=== PATIENT | female | born 1965 ===

== ENCOUNTER 2019-05-27 14:32 | Emergency (ER) | payer SELFPAY ==
[2019-05-27] MEDS ORDERED: Ibuprofen TAB* 600 MG PO ONE (15:00)
--- NOTE | 2019-05-27 16:05 | UC ---
Lower Extremity/Ankle HPI - HPI Summary HPI Summary: 53-year-old woman comes in with a chief complaint of left ankle pain and injury. Just prior to arrival slipped and fell injuring her ankle. Is unable to bear weight. Ankle is swollen. No complaint of decreased sensation. No complaint of any other injuries. Has not taken any pain medications since the injury. - History of Current Complaint Chief Complaint: UCLowerExtremity Stated Complaint: ANKLE INJURY Time Seen by Provider: 05/27/19 15:50 Pain Intensity: 10 - Allergies/Home Medications Allergies/Adverse Reactions: Allergies Allergy/AdvReac Type Severity Reaction Status Date / Time No Known Allergies Allergy Verified 05/27/19 14:49 Home Medications: Home Medications Levothyroxine TAB* [Synthroid 75 MCG TAB*] 1 tab DAILY 05/27/19 [History Confirmed 05/27/19] PMH/Surg Hx/FS Hx/Imm Hx Previously Healthy: Yes Endocrine History: Hypothyroidism - Surgical History Surgical History: None - Family History Known Family History: Positive: Non-Contributory - Social History Alcohol Use: None Substance Use Type: None Smoking Status (MU): Never Smoked Tobacco Review of Systems All Other Systems Reviewed And Are Negative: Yes Constitutional: Positive: Negative Skin: Positive: Negative Eyes: Positive: Negative ENT: Positive: Negative Respiratory: Positive: Negative Cardiovascular: Positive: Negative Gastrointestinal: Positive: Negative Motor: Positive: Other - see hpi Neurovascular: Positive: Negative Musculoskeletal: Positive: Other: - see hpi Neurological/Mental Status: Positive: Negative Psychological: Positive: Negative Is Patient Immunocompromised?: No Physical Exam Triage Information Reviewed: Yes Appearance: Well-Appearing, Well-Nourished, Pain Distress - mild at rest, increased with movement/exam of left ankle Vital Signs: Initial Vital Signs Temp 98.1 F 05/27/19 14:50 Pulse 56 05/27/19 14:50 Resp 16 05/27/19 14:50 BP 100/56 05/27/19 14:50 Pulse Ox 100 05/27/19 14:50 Vital Signs Reviewed: Yes Eye Exam: Normal Eyes: Positive: Conjunctiva Clear Neck: Positive: Supple Respiratory: Positive: No respiratory distress Musculoskeletal: Positive: Other: - Left ankle is swollen and tender to palpation. The Achilles tendon is intact. Dorsalis pedis pulse is present. In the ankle and foot Capillary refill is normal sensation is normal. There is no tenting of the skin. Neurological: Positive: Alert Psychological: Positive: Normal Response To Family, Age Appropriate Behavior Skin Exam: Normal Lower Extremity Course/Dx - Course Course Of Treatment: Intelligence Group Supervisor: Jorje Thurman Daniel, ([id number]) Clinical Nurse Manager: BASILIO ( NUANCE) Report Date: 05/27/2019 15:43:00 Report Status: Final ====== Start of Report Content Patient Name: LORAINE JURADO Medical Record#: [id number] Ordering Physician: Jori Min MD Acct.#: [id number] : 11/1965 Age: 53 Sex: F Location: [facility] Exam Date: 05/27/19 1500 ADM Status: REG ER Order Information: ANKLE LEFT 3+VWS Accession Number: [id number] CPT: 55470 HISTORY: PAIN S/P INJURY . COMPARISONS: None relevant available at the time of dictation. VIEWS: 3, Frontal, lateral, and oblique views of the left ankle FINDINGS: BONE DENSITY: Normal. BONES: There are comminuted fractures of the medial malleolus, posterior distal tibia, and distal fibula. There is no significant displacement. There is articular extension. JOINTS: There is no arthropathy. ALIGNMENT: The mortise is intact. SOFT TISSUES: Unremarkable. OTHER FINDINGS: None. IMPRESSION: TRIMALLEOLAR FRACTURE OF THE LEFT ANKLE. <Electronically signed by Jorje Thurman MD in OV> 05/27/19 1539 Dictated By: Jorje Thurman MD Dictated Date/Time: 05/27/19 1538 Transcribed Date/Time: 05/27/19 1538 Copy to: CC:[facility]; No Primary Care Phys,NOPCP ; Jori Min MD Imaging - [facility] Imaging - [facility] Imaging - [facility] [address] [address] [place], [place] [id number] [place] [id number] ph ([phone]) ph ([phone]) ph ([phone]) End of Report Content Intelligence Group Supervisor: Twan Clarke, ([id number]) Clinical Nurse Manager: BASILIO (NUANCE) Report Date: 05/27/2019 17:28:00 Report Status: Final Start of Report Content Patient Name: LORAINE JURADO Medical Record#: [id number] Ordering Physician: Jori Min MD Acct.#: [id number] : 11/1965 Age: 53 Sex: F Location: [facility] Exam Date: 05/27/19 1647 ADM Status: REG ER Order Information: CT EXTREMITY LOWER LEFT WO Accession Number: [id number] CPT: 91665 INDICATION: Fracture follow-up. COMPARISON: Same day left ankle radiograph TECHNIQUE: Contiguous axial sections were obtained of the left. Images were reconstructed in the sagittal and coronal planes. FINDINGS : The bone mineralization is within normal limits. There is a complex oblique coronally oriented fracture extending through the posterior malleolus with approximately 5 mm of distraction. There is a complex oblique coronal oriented fracture of the distal fibula extending superiorly from the level the ankle mortise. There is a comminuted fracture of the medial malleolus with a few avulsed fracture fragments. There is subtle syndesmotic widening. The joint spaces in the mid foot are preserved. There is soft tissue swelling about the ankle. The overall muscle bulk is within normal limits. IMPRESSION: TRIMALLEOLAR FRACTURE PATTERN ABOVE. <Electronically signed by Twan Clarke MD in OV> 05/27/191722 Dictated By: Twan Calrke MD Dictated Date/Time: 05/27/191714 Transcribed Date/Time: 05/27/191714 Copy to: CC:No Primary Care Phys,NOPCP ; Jori Min MD Imaging - [facility] Imaging - [facility] Imaging - [facility] [address] [address] ph ([phone]) ph [phone]) ([phone]) End of Report Content I discussed the x-rays and CT report with the patient and her family. I discussed the x-ray report with Dr. Delcid the on-call orthopedist. He recommended CT scan. I placed the patient in a posterior splint with sugar tong splint also. Patient neurovascular intact before and after placement of the splint. Patient was given crutches in clinic. I discussed with the patient and her family to watch for capillary refill and sensation in the foot and the need to elevate the ankle and to loosen the splint if necessary if she's having any problems. I also let them know that if there was any numbness or decreased circulation that was not improved with elevation or loosening the splint they need to get reevaluated right away and the nearest emergency department. Doctor Munoz recommended orthopedic follow-up with him on Friday, May. Patient lives in the [facility] and she is planning on following up with her orthopedist in the [facility]. Pain control will be with elevation and anti-inflammatories. - Differential Dx/Diagnosis Provider Diagnosis: Fracture of ankle, trimalleolar, left, closed Discharge ED - Sign-Out/Discharge Documenting (check all that apply): Patient Departure All imaging exams completed and their final reports reviewed: Yes - Discharge Plan Condition: Stable Disposition: HOME Patient Education Materials: Ankle Fracture (ED) Referrals: Gene Delcid MD [Medical Doctor] - Additional Instructions: FOLLOW UP WITH ORTHOPEDICS. CALL TOMORROW TO ARRANGE FOLLOW UP. No weightbearing on the left leg. Check for normal sensation and capillary refill in the toes. Elevate the injury to approximately the level of the heart. If there is any signs of loss of blood flow or sensation that does not improve with repositioning and or loosening of the splint, get reevaluated right away in the nearest emergency department. GET REEVALUATED SOONER IF NOT IMPROVED OR WORSE OR ANY QUESTIONS OR CONCERNS. - Billing Disposition and Condition Condition: STABLE Disposition: Home
[2019-05-27] MEDS ORDERED: HYDROcodone/ACETAMIN 5-325 MG* 1 TAB PO ONE ×2 (16:10→18:07)
[2019-05-27 17:24] VITALS: BP 127/72
== END 2019-05-27 18:30 | disposition home or self-care (01) ==
LOC: UCEAST 14:32
DX: S82.852A Displaced trimalleolar fracture of left lower leg, initial encounter for closed fracture (principal); E03.9 Hypothyroidism, unspecified; Z79.890 Hormone replacement therapy; W01.0XXA Fall on same level from slipping, tripping and stumbling without subsequent striking against object, initial encounter; Y92.9 Unspecified place or not applicable
CPT/HCPCS: 99203; A9270-GY; G0463